=== PATIENT | female | born 1940 | race Caucasian/White ===

== ENCOUNTER 2017-06-01 10:13 | Day surgery (SDC) | payer MEDICARE, MEDICAID ==
[~2017-06-01 10:13] MED LIST: HEPARIN-NS 5,000 UNITS/500 ML 5,000 UNIT/500 ML BAG IV ONE; ceFAZolin IV 1 gm in Dextrose 1 GM/50 ML BAG IVPB ONE
[2017-06-01] MEDS: Bupivacaine-Epi 0.25%-1:200,000 PF Inj ONE ×2 (10:40→11:30)
[2017-06-01] MEDS: Lidocaine 1% Inj (20ml) ONE ×2 (10:41→11:30)
[2017-06-01 10:46] VITALS: O2SAT 100
[2017-06-01] MEDS ORDERED: Lactated Ringer's 1,000 ML IV ONE (11:25)
[2017-06-01] MEDS ORDERED: ceFAZolin IV 1 gm in Dextrose 1 GM/50 ML BAG IVPB ONE (11:36)
[2017-06-01] MEDS ORDERED: Propofol 10 mg/ml Inj (20 ML) ONE (11:38)
[2017-06-01] MEDS ORDERED: Midazolam 2 MG/2 ML VIAL ONE (11:38)
--- NOTE | 2017-06-01 12:55 | PCM.SURG1 ---
Surgeon's Initial Post Op Note - Surgeon's Notes Surgeon: Atif Professional Nursing Tutor: July PGY3 Type of Anesthesia: General LMA, Local Pre-Operative Diagnosis: Colon CA Operative Findings: normal neck anatomy Post-Operative Diagnosis: same Operation Performed: R IJ portacath Specimen/Specimens Removed: none Estimated Blood Loss: EBL {In ML}: 20 Blood Products Given: N/A Drains Used: No Drains Post-Op Condition: Good Date of Surgery/Procedure: 06/01/17 Time of Surgery/Procedure: 12:55
[2017-06-01] MEDS ORDERED: Lactated Ringer's 500 ML IV ONE (13:30)
--- NOTE | 2017-06-01 14:02 | RAD ---
HISTORY: s/p R IJ portacath COMPARISON: No prior. FINDINGS: The right Port-A-Cath terminates in the SVC. LUNGS: No active pulmonary disease. PLEURA: No significant pleural effusion identified, no pneumothorax apparent. CARDIOVASCULAR: Normal. OSSEOUS STRUCTURES: No significant abnormalities. VISUALIZED UPPER ABDOMEN: Normal. OTHER FINDINGS: There is chronic elevation of the right hemidiaphragm PE IMPRESSION: Right Port-A-Cath terminates in the SVC. No pneumothorax. No acute findings.
[2017-06-01 15:15] VITALS: BP 116/54; PULSE 90; RESP 18; TEMP 97
--- NOTE | 2017-06-01 15:30 | RAD ---
PROCEDURE: Intraoperative Fluoroscopy. HISTORY: COLON CA FINDINGS: Fluoroscopic assistance was provided. 8.8 seconds fluoroscopy time utilized during this procedure. Radiation dose = 0.52043 mGy. for additional details.
--- NOTE | 2017-06-02 04:41 | OP ---
PROCEDURE DATE: 06/01/2017 PREOPERATIVE DIAGNOSIS: Colon cancer, status post right hemicolectomy. POSTOPERATIVE DIAGNOSIS: Colon cancer, status post right hemicolectomy. PROCEDURE DONE: 1. Right internal jugular Port-A-Cath insertion. 2. Ultrasound-guided venous access. 3. Intraoperative fluoroscopy. SURGEON: Duarte Srivastava MD [employer] OPERATOR: Eduardo Orozco. TYPE OF ANESTHESIA: General endotracheal tube anesthesia. ESTIMATED BLOOD LOSS: Around 10 mL. DRAINS: None. PATHOLOGY: None. COMPLICATIONS: None. INTRAOPERATIVE FINDINGS: The patient had patent right IJ on ultrasound. INTRAOPERATIVE STEPS: This 76-year-old female who was diagnosed with colon cancer and the patient is status post robotic right hemicolectomy and the patient needed IV chemotherapy. The patient was consented for Port-A-Cath insertion and brought to the OR and placed supine on operating table. After induction of anesthesia, the neck and upper chest was prepped and draped in usual sterile fashion. Under ultrasound guidance, right IJ venous access was done. Intraoperative fluoroscopy confirmation was done of the guidewire and now, the right infraclavicular incision was made and pouch was created. The catheter was then tunneled from the pouch up to the right IJ insertion site and the catheter was placed into the dilator sheath and the intraoperative fluoroscopy confirmation was done for proper placement and the catheter was connected to the port and port was accessed and port was sutured to the floor of the pouch and the wound was closed in two layer subcutaneous with 2-0 Vicryl and skin with 4-0 Monocryl and dry sterile dressing was applied. The patient tolerated the procedure well. Count of the instrument and gauze was correct. There was no apparent complication. The patient was extubated in OR and sent to the postanesthesia care unit in stable condition. Duarte Srivastava MD
== END 2017-06-01 15:18 | disposition home or self-care (01) ==
LOC: C.SDS 10:13
PROVIDERS: ATTEND Surgery Surgical Critical Care
DX: C18.9 Malignant neoplasm of colon, unspecified (principal)
CPT/HCPCS: 36561; 71010; 76000; C1788; J1644; J2001; J2250; J2704; J2765; J3010; J7040; J7120

== ENCOUNTER 2017-11-23 09:29 | Day surgery (SDC) | payer MEDICARE, MEDICAID ==
[2017-11-19 10:07] VITALS: BMI 17.7
[2017-11-23] MEDS ORDERED: Bupivacaine 0.25% Inj(30mL) ONE (12:12)
[2017-11-23] MEDS ORDERED: ceFAZolin 1 gm in NS 1 GM/100 ML BAG IVPB ONE (12:12)
[2017-11-23] MEDS ORDERED: Lidocaine/Epinephrine 1% 1:100000 10 ML IJ ONE (12:12)
[2017-11-23] MEDS ORDERED: Oxycodone/Acetaminophen 5/325 mg Tab PO PRN (13:37)
--- NOTE | 2017-11-23 13:37 | PCM.SURG1 ---
Surgeon's Initial Post Op Note - Surgeon's Notes Surgeon: Dr. Srivastava Editor [employer]: Alexandria Dorman, PGY-1 Type of Anesthesia: Local Pre-Operative Diagnosis: s/p colon cancer requiring chemotherapy Operative Findings: see op report Post-Operative Diagnosis: s/p colon cancer requiring chemotherapy Operation Performed: RIJ portacath removal Specimen/Specimens Removed: portacath Estimated Blood Loss: EBL {In ML}: 2 Blood Products Given: N/A Drains Used: No Drains Post-Op Condition: Good Date of Surgery/Procedure: 11/23/17 Time of Surgery/Procedure: 13:37
[2017-11-23 14:07] VITALS: RESP 16; O2SAT 100
[2017-11-23 15:31] VITALS: BP 131/52; PULSE 79; TEMP 97.7
--- NOTE | 2017-11-24 04:00 | OP ---
PROCEDURE DATE: 11/23/2017 PREOPERATIVE DIAGNOSIS: Colon cancer, status post colon resection and status post chemotherapy. POSTOPERATIVE DIAGNOSIS: Colon cancer, status post colon resection and status post chemotherapy. PROCEDURE: Removal of the Port-A-Cath. SURGEON: Duarte Srivastava MD IN CLASSROOM TUTOR: Alexandria Dorman. TYPE OF ANESTHESIA: Local anesthesia plus sedation. ESTIMATED BLOOD LOSS: Around 10 mL. DRAINS: None. PATHOLOGY: The Port-A-Cath catheter was sent for the pathology. COMPLICATIONS: None. INTRAOPERATIVE FINDINGS: The patient had right IJ Port-A-Cath. The right chest and neck was prepped and draped. Local anesthesia was injected. Incision was made. Port was removed. The capsule was partially dissected and removed, and the wound was irrigated, and wound was closed with multiple layer. The of the capsule area was sutured with a 2-0 Vicryl, the second layer is a deep subcu, and another layer of skin with 4-0 Monocryl, and a dry sterile dressing was applied. The patient tolerated the procedure well. Count of instrument and gauze was correct. There was no apparent complication. The second part of the operation is a layered closure of the wound simple 3 x 1 cm size. The patient tolerated the procedure well. Count of instrument and gauze was correct. Duarte Srivastava MD
== END 2017-11-23 14:40 | disposition home or self-care (01) ==
LOC: C.SDS 09:29
PROVIDERS: ATTEND Surgery Surgical Critical Care
DX: C18.9 Malignant neoplasm of colon, unspecified (principal); Z45.2 Encounter for adjustment and management of vascular access device
CPT/HCPCS: 36590; 88300; J0690; J3010

== ENCOUNTER 2018-01-15 10:31 | Emergency (ER) | payer MEDICARE, MEDICAID ==
[2018-01-15 10:39] VITALS: BMI 18.3
[2018-01-15 10:41] VITALS: O2SAT 100
--- NOTE | 2018-01-15 11:21 | C.PDOC ---
History Of Present Illness 77 y/o F c PMHx colon cancer s/p resection and chemotherapy (last treatment 2 months ago) p/w numbness/paresthesias of bilateral hands and feet x 1 month, gradually worsening. Saw Dr. Reynolds for these symptoms and started on Gabapentin , which she states is not helping. Son states patient has been having difficulty walking secondary to the numbness. Patient denies fever, chills, chest pain, dyspnea, motor weakness, pain. Time Seen by Provider: 01/15/18 10:58 Chief Complaint (Nursing): Weakness/Neurological Deficit Past Medical History Vital Signs: Last Vital Signs Temp 98.5 F 01/15/18 10:39 Pulse 81 01/15/18 10:39 Resp 18 01/15/18 10:39 BP 123/78 01/15/18 10:39 Pulse Ox 100 01/15/18 11:43 - Medical History PMH: Depression (FROM DIAGNOSIS), Gall Bladder Disease, Malignancy Surgical History: Cholecystectomy - [facility] Procedures DRAINAGE OF ASCENDING COLON, ENDO, DIAGN (04/27/17) EXCISION OF GREATER OMENTUM, PERC ENDO APPROACH (04/27/17) EXCISION OF RECTUM, ENDO, DIAGN (04/27/17) EXCISION OF SIGMOID COLON, ENDO, DIAGN (04/27/17) INFLUENZA VACCINATION (07/30/13) LAPAROSCOPIC CHOLECYSTECTOMY (07/30/13) RESECTION OF RIGHT LARGE INTESTINE, PERC ENDO APPROACH (04/27/17) VACCINATION NEC (07/30/13) Family History: States: Unknown Family Hx - Social History Hx Alcohol Use: No Hx Substance Use: No - Immunization History Hx Tetanus Toxoid Vaccination: No Hx Influenza Vaccination: No Hx Pneumococcal Vaccination: No Review Of Systems Except As Marked, All Systems Reviewed And Found Negative. Constitutional: Negative for: Fever Cardiovascular: Negative for: Chest Pain Physical Exam - Physical Exam Additional Physical Exam Comments: Gen: NAD Head: NC Eyes: No icterus ENT: MMM Neck: Supple Chest: No tenderness CV: Regular rate Lungs: CTA b/l Abd: Soft, NT Back: No CVA tenderness Skin: No rash Extremities: FROM x4, no edema Neuro: Alert, moves all extremities, no sensation to light touch in hands and feet, pin prick sensation intact but decreased ED Course And Treatment - Laboratory Results Result Diagrams: 01/15/18 11:31 06/01/18 11:31 O2 Sat by Pulse Oximetry: 100 Medical Decision Making Medical Decision Making: CXR IMPRESSION: No active pulmonary disease. EKG NSR 70 bpm, no ST/T wave changes. Labs unremarkable. Discussed case with Dr. Reynolds who states patient has had neuropathy which is a known side effect of the chemotherapy and has seen him multiple times for it. Recommends starting Lyrica and he will see patient in his office after the weekend. Disposition - Disposition Referrals: Nabor Reynolds MD [Staff Provider] - Disposition: HOME/ ROUTINE Disposition Time: 12:27 Condition: STABLE Prescriptions: Pregabalin [Lyrica] 50 mg PO TID #30 cap Instructions: Peripheral Neuropathy Forms: [facility] (Solomon Islander) - Clinical Impression Clinical Impression: Neuropathy
--- NOTE | 2018-01-15 11:37 | RAD ---
HISTORY: paresthesias COMPARISON: 06/17/2017. FINDINGS: LUNGS: The lungs are well inflated and clear. PLEURA: No significant pleural effusion identified, no pneumothorax apparent. CARDIOVASCULAR: Normal. OSSEOUS STRUCTURES: No significant abnormalities. VISUALIZED UPPER ABDOMEN: Normal. OTHER FINDINGS: None. IMPRESSION: No active pulmonary disease.
[2018-01-15 11:41] LABS: BASO # 0.1 K/uL (0.0-0.2); BASO % 1.3 % (0.0-2.0); EOS # 0.1 K/uL (0.0-0.7); EOS % 3.7 % (0.0-4.0); HEMOGLOBIN 13.2 g/dL (11.0-16.0); LYMPH # 1.3 K/uL (1.0-4.3); LYMPH % 33.6 % (20.0-40.0); MEAN CELL VOLUME 93.8 fL (81.0-99.0); MEAN CORPUSCULAR HEMOGLOBIN 32.7 pg (27.0-31.0); MEAN CORPUSCULAR HGB CONC 34.9 g/dL (33.0-37.0); MEAN PLATELET VOLUME 7.4 fL (7.2-11.7); MONO # 0.5 K/uL (0.0-0.8); MONO % 11.4 % (0.0-10.0); NRBC % 0.1 % (0.0-2.0); RBC 4.04 Mil/uL (3.80-5.20); RED CELL DISTRIBUTION WIDTH 14.3 % (11.5-14.5)
[2018-01-15 11:51] LABS: ALBUMIN 3.8 g/dL (3.5-5.0); ALT/SGPT 43 U/L (9-52); AST/SGOT 64 U/L (14-36); BLOOD UREA NITROGEN 11 mg/dL (7-17); CALCIUM 8.8 mg/dl (8.6-10.4); GFR AFRICAN-AMERICAN > 60; GFR NON-AFRICAN AMERICAN > 60
[2018-01-15 11:56] LABS: SQUAMOUS EPITHIAL 2 /hpf (0-5); URINE BILIRUBIN NEGATIVE (NEGATIVE); URINE BLOOD NEGATIVE (NEGATIVE); URINE CLARITY Clear (Clear); URINE COLOR Yellow (YELLOW); URINE GLUCOSE (UA) NORMAL (Normal); URINE LEUKOCYTE ESTERASE 2+ Leu/uL (Negative); URINE PROTEIN NEGATIVE (NEGATIVE); URINE UROBILINOGEN NORMAL mg/dL (0.2-1.0)
[2018-01-15 13:06] VITALS: BP 150/79; PULSE 80; RESP 16; TEMP 98.4
== END 2018-01-15 13:04 | disposition home or self-care (01) ==
LOC: C.ER 10:31
DX: G62.9 Polyneuropathy, unspecified (principal)

== ENCOUNTER 2018-05-26 13:05 | Inpatient (IN) | payer MEDICARE, MEDICAID ==
[2018-05-26 13:05] VITALS: BMI 18.3
--- NOTE | 2018-05-26 14:27 | C.PDOC ---
History Of Present Illness 77yo F PMH colon CA s/p chemo (last 6 months ago) c/o increased numbness/tingling in hands and feet x1.5 months. After completing chemotherapy, she experienced numbness tingling well controlled on Lyrica 300. Was decreased to 100 by her primary, Dr. Shakira Castillo 2 months ago. Today, feeling increased weakness and c/o requiring assistance to move around the house, becoming deconditioned. Denies [place], dizziness, lightheadedness, syncope, nausea, vomiting, incontinence. Reports 5 lb weight loss in the last 6 months without trying. <Radha Miller - Last Filed: 05/26/18 16:54> <Radha Miller - Last Filed: 05/26/18 16:54> <Eduardo Herndon DO - Last Filed: 05/26/18 18:58> Chief Complaint (Nursing): Weakness/Neurological Deficit Past Medical History Vital Signs: Last Vital Signs Temp 98.3 F 05/26/18 13:18 Pulse 118 H 05/26/18 13:18 Resp 16 05/26/18 13:18 BP 122/79 05/26/18 13:18 Pulse Ox 96 05/26/18 13:18 - Medical History PMH: Depression (FROM DIAGNOSIS), Malignancy Denies: Gall Bladder Disease Surgical History: Cholecystectomy - [facility] Procedures DRAINAGE OF ASCENDING COLON, ENDO, DIAGN (04/27/17) EXCISION OF GREATER OMENTUM, PERC ENDO APPROACH (04/27/17) EXCISION OF RECTUM, ENDO, DIAGN (04/27/17) EXCISION OF SIGMOID COLON, ENDO, DIAGN (04/27/17) INFLUENZA VACCINATION (07/30/13) LAPAROSCOPIC CHOLECYSTECTOMY (07/30/13) RESECTION OF RIGHT LARGE INTESTINE, PERC ENDO APPROACH (04/27/17) VACCINATION NEC (07/30/13) Family History: States: Unknown Family Hx Other Family History: MGF- thyroid CA - Social History Hx Tobacco Use: No Hx Alcohol Use: No Hx Substance Use: No - Immunization History Hx Tetanus Toxoid Vaccination: Yes Hx Influenza Vaccination: Yes Hx Pneumococcal Vaccination: No <Radha Miller - Last Filed: 05/26/18 16:54> Vital Signs: Last Vital Signs Temp 97.4 F L 05/26/18 17:11 Pulse 89 05/26/18 17:11 Resp 18 05/26/18 17:11 BP 136/73 05/26/18 17:11 Pulse Ox 97 05/26/18 17:11 - [facility] Procedures DRAINAGE OF ASCENDING COLON, ENDO, DIAGN (04/27/17) EXCISION OF GREATER OMENTUM, PERC ENDO APPROACH (04/27/17) EXCISION OF RECTUM, ENDO, DIAGN (04/27/17) EXCISION OF SIGMOID COLON, ENDO, DIAGN (04/27/17) INFLUENZA VACCINATION (07/30/13) LAPAROSCOPIC CHOLECYSTECTOMY (07/30/13) RESECTION OF RIGHT LARGE INTESTINE, PERC ENDO APPROACH (04/27/17) VACCINATION NEC (07/30/13) <Eduardo Herndon DO - Last Filed: 05/26/18 18:58> Review Of Systems Except As Marked, All Systems Reviewed And Found Negative. Constitutional: Positive for: Weakness, Malaise, Weight loss. Negative for: Fever, Chills Eyes: Positive for: Other (jaundice). Negative for: Vision Change ENT: Negative for: Ear Pain, Ear Discharge Cardiovascular: Negative for: Chest Pain, Palpitations, Light Headedness Respiratory: Negative for: Cough, Shortness of Breath, Hemoptysis, Sputum, Wheezing Gastrointestinal: Negative for: Nausea, Abdominal Pain, Diarrhea, Constipation, Melena, Hematochezia, Hematemesis Genitourinary: Negative for: Dysuria, Frequency, Incontinence, Hematuria Musculoskeletal: Negative for: Shoulder Pain, Arm Pain, Back Pain Skin: Positive for: Jaundice Neurological: Positive for: Weakness, Numbness, Incoordination. Negative for: Change in Speech, Confusion, Headache, Dizziness <Radha Miller - Last Filed: 05/26/18 16:54> Physical Exam - Physical Exam Appears: Non-toxic, No Acute Distress Skin: Dry, Jaundice Head: Atraumatic, Normacephalic Eye(s): bilateral: PERRL, EOMI, Scleral Icterus, Other (arcus senilis) Ear(s): Bilateral: Normal Oral Mucosa: Dry Cardiovascular: Rhythm Regular, Rhythm Irregular, No Murmur Respiratory: Normal Breath Sounds, No Accessory Muscle Use Gastrointestinal/Abdominal: Bowel Sounds, Soft, No Tenderness, No Organomegaly, Distention (pt states distention is her normal) Back: No CVA Tenderness Extremity: Normal ROM Pulses: Left Radial: Normal, Right Radial: Normal, Left Dorsalis Pedis: Normal, Right Dorsalis Pedis: Normal DTR: Bicep (R): 2+, Bicep (L): 2+, Tricep (R): 2+, Tricep (L): 2+, Knee (R): 2+, Knee (L): 2+ Neurological/Psych: Oriented x3, Normal Speech, Normal Cognition, Normal Cranial Nerves, No Normal Motor (decreased MS in L hand and L foot. couldn't opposition) Gait: With Assistance <Radha Miller - Last Filed: 05/26/18 16:54> ED Course And Treatment - Laboratory Results Result Diagrams: 05/26/18 15:33 05/26/18 15:33 O2 Sat by Pulse Oximetry: 96 <Radha Miller - Last Filed: 05/26/18 16:54> - Laboratory Results Result Diagrams: 05/26/18 15:33 05/26/18 15:33 <Eduardo Herndon DO - Last Filed: 05/26/18 18:58> Medical Decision Making Medical Decision Making: CBC, CMP, lipase -> elevated LFTs, alk phos, tBili CT A/P with IV contrast IVF, direct bili, coags. UA EKG NSR, normal axis She does not have any f/u appointments scheduled with Drs. Jones or Dr. Castillo or GI at this time. Patient refused SNF or home PT after Tx. Is requesting wheelchair on d/c but was advised to go to her PMD for referral. <Radha Miller - Last Filed: 05/26/18 16:54> Disposition - Disposition Disposition Time: 17:00 <Radha Miller - Last Filed: 05/26/18 16:54> <Eduardo Herndon DO - Last Filed: 05/26/18 18:58> - Disposition Condition: FAIR Instructions: Weakness (ED) Forms: [facility] (Nepali) - Clinical Impression Clinical Impression: Elevated LFTs, Jaundice, Weakness - PA / [employer] EXAMINER / Resident Statement / has reviewed & agrees with the documentation as recorded. / has examined the patient and agrees with the treatment plan. <Radha Miller - Last Filed: 05/26/18 16:54>
[2018-05-26] MEDS ORDERED: Sodium Chloride 0.9% 1,000 ML IV ONE (14:36)
[2018-05-26 15:48] LABS: HEMOGLOBIN 14.2 g/dL (11.0-16.0); MEAN CELL VOLUME 92.2 fL (81.0-99.0); MEAN CORPUSCULAR HEMOGLOBIN 31.2 pg (27.0-31.0); MEAN CORPUSCULAR HGB CONC 33.9 g/dL (33.0-37.0); MEAN PLATELET VOLUME 7.4 fL (7.2-11.7); RBC 4.55 Mil/uL (3.80-5.20); RED CELL DISTRIBUTION WIDTH 21.5 % (11.5-14.5)
[2018-05-26 15:53] LABS: PLATELET COUNT 364 K/uL (130-400); WHITE BLOOD COUNT 7.4 K/uL (4.8-10.8)
[2018-05-26 15:55] LABS: BLOOD UREA NITROGEN 9 mg/dL (7-17); CALCIUM 9.3 mg/dl (8.6-10.4); GFR NON-AFRICAN AMERICAN > 60; LIPASE 108 U/L (23-300)
[2018-05-26 15:57] LABS: ALB/GLOB RATIO 0.8 (1.0-2.1); ALBUMIN 3.1 g/dL (3.5-5.0); ALT/SGPT 104 U/L (9-52); AST/SGOT 355 U/L (14-36)
[2018-05-26 16:30] LABS: NEUT # 6.7 K/uL (1.8-7.0)
[2018-05-26 16:31] LABS: EOS # 0.1 K/uL (0.0-0.7); LYMPH # 0.4 K/uL (1.0-4.3); MONO # 0.3 K/uL (0.0-0.8)
[2018-05-26 16:32] LABS: ANISOCYTOSIS SLIGHT; EOSINOPHIL 1 % (0-4); LYMPHOCYTE 6 % (20-40); MONOCYTE 4 % (0-10); NEUTROPHIL 89 % (50-75); PLATELET ESTIMATE NORMAL (NORMAL); TOTAL CELLS COUNTED 100
[2018-05-26 16:33] LABS: POLYCHROMIC SLIGHT; TARGET CELLS SLIGHT
[2018-05-26 16:44] LABS: INR 1.4; PROTHROMBIN TIME 15.4 SECONDS (9.7-12.2)
[2018-05-26] MEDS ORDERED: Iohexol 300 100 ML IJ ONE (16:59)
[2018-05-26 17:51] LABS: SQUAMOUS EPITHIAL 2 /hpf (0-5); URINE BACTERIA OCC (<OCC); URINE BILIRUBIN 2+ (NEGATIVE); URINE BLOOD NEGATIVE (NEGATIVE); URINE CLARITY Hazy (Clear); URINE COLOR Amber (YELLOW); URINE GLUCOSE (UA) NORMAL (Normal); URINE LEUKOCYTE ESTERASE NEG Leu/uL (Negative); URINE PROTEIN 1+ mg/dL (NEGATIVE)
--- NOTE | 2018-05-27 09:44 | US ---
Date of service: 05/26/2018 HISTORY: weakness, jaundice COMPARISON: None. TECHNIQUE: Sonographic evaluation of the abdomen. FINDINGS: LIVER: Measures 15 cm at least probably more per images. Grossly abnormal echogenicity of the liver parenchyma. Multiple large masses some with central hypodensities probable necrotic centers are present. One complex left hepatic mass measures 11.6 x 11.5 x 11.5 cm. Another right hepatic mass measures 14 x 13 by 13 cm. There are likely additional masses throughout the left and right hepatic lobes. No intrahepatic bile duct dilatation. GALLBLADDER: Nonvisualized consistent with prior cholecystectomy per patient. COMMON BILE DUCT: Measures 7 mm. No stones. No dilatation. PANCREAS: Limited exam. RIGHT KIDNEY: Measures 8.4 x 4.5 x 4.7cm. Normal echogenicity. No calculus, mass, or hydronephrosis. LEFT KIDNEY: Measures 9.0 x 4.7 x 4.7cm. Normal echogenicity. No calculus, solid appearing mass, or hydronephrosis. In the lower pole benign cyst measuring 1.1 x 1.0 x 1.0 cm in size is noted. SPLEEN: 8.8 cm normal size without mass apparent AORTA: No aneurysmal dilatation. IVC: Unremarkable. OTHER FINDINGS: There is ascites present IMPRESSION: Hepatomegaly with grossly abnormal echotexture and multiple masses studding it. Multiple hepatic metastases suspect. Bordering ascites. No dilated ducts. Cholecystectomy Evaluation of pancreas markedly limited. Incidental small left lower renal pole cyst. Concordant results (preliminary interpretation) provided by [employer].
--- NOTE | 2018-05-27 13:07 | CT ---
Date of service: 05/26/18 CT abdomen and pelvis with IV contrast Indication: Abdominal distension, patient is jaundiced, weight loss Technique: Contiguous axial images of the abdomen and pelvis. Coronal and Sagittal reformats generated and reviewed. Contrast: 100 mL Omnipaque [address] exam was performed using 1 or more of the following dose reduction techniques: Automated exposure control, adjustment of the MAA and/or kV according to patient size, and/or use of iterative reconstruction technique. Radiation dose: Total exam DLP = 336.41 MGy-cm. Comparison: Abdominal ultrasound performed 05/26/18 Findings: Multiple bilateral pulmonary nodules measuring up to 5 mm consistent with metastases. Atelectasis minimal basilar atelectasis/scarring. There is no visible pleural effusion or pneumothorax. Hepatomegaly. Markedly heterogeneous abnormal appearance of the liver with innumerable masses appear consistent with metastases. Cholecystectomy. Pancreatic atrophy.No evidence of adrenal mass. The kidneys enhance symmetrically. No hydronephrosis or obstructing calculus identified. Small cortical hypodensities involving the left kidney, likely cyst. The spleen appears unremarkable. Diffuse gastric wall thickening; correlate for possibility gastritis. Duodenal wall thickening may be seen in the setting of duodenitis. Extensive diverticulosis without CT evidence of acute diverticulitis. No evidence of bowel obstruction. There is no definite free air. Large complex mass with both solid and cystic elements measures approximately 13 x 11 cm. Mass origin unclear, however suspected ovarian. The uterus is not identified presumably due to hysterectomy. Small abdominal and pelvic ascites. The urinary bladder appears decompressed. No acute osseous abnormality is detected. Impression: Large complex pelvic mass with cystic and solid components of unclear origin, possibly ovarian in etiology. The uterus is absent presumably due to hysterectomy. Innumerable hepatic masses consistent with metastases. Pulmonary nodules also consistent with metastases. Correlate clinically. Small abdominal and pelvic ascites. Diffuse gastric wall thickening; correlate for possibility of gastritis. Duodenal wall thickening may be seen in the setting of duodenitis. Correlate clinically. Additional findings as above. Preliminary impression was provided by [employer].
--- NOTE | 2018-05-27 13:58 | CP.PCM.CON ---
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 For the last 5 days patient has been unable to tolerate most meals, regurgitating undigested food in the hours following eating. Her sister who is at bedside states that the patient suddenly became jaundice 5 days prior to admission as well. Since finishing chemotherapy, patient has felt well and had n o issues until recently. She was using Lyrica for numbness/tingling in her hands/feet without relief. Given the constellation of symptoms, she came to the ED for further evaluation. A CT performed in the ED showed multiple malignant- appearing liver lesions along with a large right pelvic mass. 12 system ROS performed and negative except where stated PMHx: See HPI PSHx: Right hemicolectomy, cholecystectomy, Port-a-cath placement FHx: Mother - stomach cancer, Sister - breast cancer; grandmother - thyroid cancer Social: Denies tobacco, EtOH or illicit drug use Endo: Colonoscopy - 04/2017 - ascending mass which could not be traversed leading to cancer diagnosis Past Patient History - Infectious Disease Hx of Infectious Diseases: None - Past Medical History & Family History Past Medical History?: Yes - Past Social History Smoking Status: Never Smoked - NEUROLOGICAL Other/Comment: tingling and numbness of hands and feet - RENAL Hx Chronic Kidney Disease: No - HEMATOLOGICAL/ONCOLOGICAL Hx Blood Disorders: Yes Hx Blood Transfusions: Yes Hx Blood Transfusion Reaction: No Hx Cancer: Yes (COLON) Other/Comment: FINISHED TREATMENT november 2017 - MUSCULOSKELETAL/RHEUMATOLOGICAL Hx Falls: Yes (at home in the bathroom) Hx Unsteady Gait: Yes Other/Comment: weak to walk - GASTROINTESTINAL Hx Gall Bladder Disease: No Other/Comment: gallbladder and colon surgery - PSYCHIATRIC Hx Depression: Yes (FROM DIAGNOSIS) Hx Substance Use: No - SURGICAL HISTORY Hx Cholecystectomy: Yes Other/Comment: colon surgery - ANESTHESIA Hx Anesthesia: Yes Hx Anesthesia Reactions: No Hx Malignant Hyperthermia: No Meds Allergies/Adverse Reactions: Allergies Allergy/AdvReac Type Severity Reaction Status Date / Time diphenhydramine Allergy Intermediate ITCHING Verified 01/15/18 10:38 [From Benjerri] - Medications Medications: Current Medications Influenza Virus Vaccine (Fluzone Quad [id number]) 60 mcg IM .ONCE ONE Stop: 05/29/18 10:01 Pneumococcal Polyvalent Vaccine (Pneumovax 23 Vaccine) 0.5 ml IM .ONCE ONE Stop: 05/29/18 10:01 Physical Exam - Constitutional Appears: No Acute Distress, Chronically Ill - Eye Exam Eye Exam: EOMI, PERRL, Scleral icterus - ENT Exam ENT Exam: Mucous Membranes Moist - Respiratory Exam Respiratory Exam: Clear to Auscultation Bilateral. absent: Rales, Rhonchi, Wheezes - Cardiovascular Exam Cardiovascular Exam: RRR, +S1, +S2 - GI/Abdominal Exam GI & Abdominal Exam: Firm (RLQ), Mass (RLQ), Normal Bowel Sounds, Soft, Tenderness (RLQ). absent: Distended, Guarding, Hernia, Organomegaly, Pulsatile Mass, Rigid - Extremities Exam Additional comments: 1+ B/L LE edema - Neurological Exam Neurological exam: Alert, Oriented x3 - Psychiatric Exam Psychiatric exam: Normal Affect - Skin Skin Exam: Dry, Warm Results - Vital Signs Recent Vital Signs: Last Vital Signs Temp 97.6 F 05/27/18 07:44 Pulse 93 H 05/27/18 07:44 Resp 20 05/27/18 07:44 BP 135/75 05/27/18 07:44 Pulse Ox 95 05/27/18 07:44 - Labs Result Diagrams: 05/26/18 15:33 05/26/18 15:33 Labs: Laboratory Results - last 24 hr 05/26/18 05/26/18 05/26/18 15:33 15:33 15:33 WBC 7.4 D RBC 4.55 Hgb 14.2 Hct 41.9 MCV 92.2 MCH 31.2 H MCHC 33.9 RDW 21.5 H Plt Count 364 D MPV 7.4 Neut % (Auto) 90.0 H Lymph % (Auto) 5.0 L [place] % (Auto) 4.0 Eos % (Auto) 1.0 Baso % (Auto) 0.0 Neut # (Auto) 6.7 Lymph # (Auto) 0.4 L [place] # (Auto) 0.3 Eos # (Auto) 0.1 Baso # (Auto) 0.0 Neutrophils % (Manual) 89 H Lymphocytes % (Manual) 6 L Monocytes % (Manual) 4 Eosinophils % (Manual) 1 Platelet Estimate Normal Polychromasia Slight Anisocytosis (manual) Slight Target Cells Slight PT INR APTT Sodium 134 Potassium 4.2 Chloride 100 Carbon Dioxide 20 L Anion Gap 18 BUN 9 Creatinine 0.5 L Est GFR ( Amer) > 60 Est GFR (Non-Af Amer) > 60 Random Glucose 119 H Calcium 9.3 Total Bilirubin 20.1 H Direct Bilirubin 17.9 H AST 355 H D ALT 104 H D Alkaline Phosphatase 1143 H Troponin I < 0.0120 Total Protein 7.3 Albumin 3.1 L Globulin 4.1 H Albumin/Globulin Ratio 0.8 L Lipase 108 Urine Color Urine Clarity Urine pH Ur Specific [place] Urine Protein Urine Glucose (UA) Urine Ketones Urine Blood Urine Nitrate Urine Bilirubin Urine Urobilinogen Ur Leukocyte Esterase Urine WBC (Auto) Urine RBC (Auto) Ur Squamous Epith Cells Urine Bacteria 05/26/18 05/26/18 16:32 17:32 WBC RBC Hgb Hct MCV MCH MCHC RDW Plt Count MPV Neut % (Auto) Lymph % (Auto) [place] % (Auto) Eos % (Auto) Baso % (Auto) Neut # (Auto) Lymph # (Auto) [place] # (Auto) Eos # (Auto) Baso # (Auto) Neutrophils % (Manual) Lymphocytes % (Manual) Monocytes % (Manual) Eosinophils % (Manual) Platelet Estimate Polychromasia Anisocytosis (manual) Target Cells PT 15.4 H INR 1.4 APTT 30 Sodium Potassium Chloride Carbon Dioxide Anion Gap BUN Creatinine Est GFR ( Amer) Est GFR (Non-Af Amer) Random Glucose Calcium Total Bilirubin Direct Bilirubin AST ALT Alkaline Phosphatase Troponin I Total Protein Albumin Globulin Albumin/Globulin Ratio Lipase Urine Color Aliya Urine Clarity Hazy Urine pH 6.0 Ur Specific [place] 1.017 Urine Protein 1+ H Urine Glucose (UA) Normal Urine Ketones Negative Urine Blood Negative Urine Nitrate Negative Urine Bilirubin 2+ H Urine Urobilinogen 4.0 H Ur Leukocyte Esterase Neg Urine WBC (Auto) 7 H Urine RBC (Auto) < 1 Ur Squamous Epith Cells 2 Urine Bacteria Occ H Assessment & Plan - Assessment and Plan (Free Text) Assessment: Patient is a 77yo female with PMHx significant for 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 -Multiple liver masses -RLQ pelvic mass -Nausea/vomiting -H/O stage 3 colon cancer with lymph node metastases s/p right hemicolectomy and chemotherapy -Direct hyperbilirubinemia 2/2 above -Abnormal LFTs 2/2 above Plan: -CT A/P and U/S abdomen reviewed with numerous large liver masses and RLQ pelvic mass noted -Masses are suspicious for progression of disease given history of colon cancer with LN mets -Hyperbilirubinemia suspected as a result of biliary obstruction/liver degeneration in the setting of advanced malignancy -Encourage oncology evaluation/consultation -Change to liquid diet -Given pronounced advancement of disease, consider palliative/hospice care -Supportive care with antiemetics, IVF as indicated -Will monitor clinical course - Date & Time Date: 05/27/18 Time: 14:00 <Regan Negrete - Last Filed: 05/27/18 14:24> Meds - Medications Medications: Current Medications Influenza Virus Vaccine (Fluzone Quad [id number]) 60 mcg IM .ONCE ONE Stop: 05/29/18 10:01 Pneumococcal Polyvalent Vaccine (Pneumovax 23 Vaccine) 0.5 ml IM .ONCE ONE Stop: 05/29/18 10:01 Results - Vital Signs Recent Vital Signs: Last Vital Signs Temp 97.6 F 05/27/18 07:44 Pulse 93 H 05/27/18 07:44 Resp 20 05/27/18 07:44 BP 135/75 05/27/18 07:44 Pulse Ox 95 05/27/18 07:44 - Labs Result Diagrams: 05/26/18 15:33 05/26/18 15:33 Labs: Laboratory Results - last 24 hr 05/26/18 05/26/18 05/26/18 15:33 15:33 15:33 WBC 7.4 D RBC 4.55 Hgb 14.2 Hct 41.9 MCV 92.2 MCH 31.2 H MCHC 33.9 RDW 21.5 H Plt Count 364 D MPV 7.4 Neut % (Auto) 90.0 H Lymph % (Auto) 5.0 L [place] % (Auto) 4.0 Eos % (Auto) 1.0 Baso % (Auto) 0.0 Neut # (Auto) 6.7 Lymph # (Auto) 0.4 L [place] # (Auto) 0.3 Eos # (Auto) 0.1 Baso # (Auto) 0.0 Neutrophils % (Manual) 89 H Lymphocytes % (Manual) 6 L Monocytes % (Manual) 4 Eosinophils % (Manual) 1 Platelet Estimate Normal Polychromasia Slight Anisocytosis (manual) Slight Target Cells Slight PT INR APTT Sodium 134 Potassium 4.2 Chloride 100 Carbon Dioxide 20 L Anion Gap 18 BUN 9 Creatinine 0.5 L Est GFR ( Amer) > 60 Est GFR (Non-Af Amer) > 60 Random Glucose 119 H Calcium 9.3 Total Bilirubin 20.1 H Direct Bilirubin 17.9 H AST 355 H D ALT 104 H D Alkaline Phosphatase 1143 H Troponin I < 0.0120 Total Protein 7.3 Albumin 3.1 L Globulin 4.1 H Albumin/Globulin Ratio 0.8 L Lipase 108 Urine Color Urine Clarity Urine pH Ur Specific [place] Urine Protein Urine Glucose (UA) Urine Ketones Urine Blood Urine Nitrate Urine Bilirubin Urine Urobilinogen Ur Leukocyte Esterase Urine WBC (Auto) Urine RBC (Auto) Ur Squamous Epith Cells Urine Bacteria 05/26/18 05/26/18 16:32 17:32 WBC RBC Hgb Hct MCV MCH MCHC RDW Plt Count MPV Neut % (Auto) Lymph % (Auto) [place] % (Auto) Eos % (Auto) Baso % (Auto) Neut # (Auto) Lymph # (Auto) [place] # (Auto) Eos # (Auto) Baso # (Auto) Neutrophils % (Manual) Lymphocytes % (Manual) Monocytes % (Manual) Eosinophils % (Manual) Platelet Estimate Polychromasia Anisocytosis (manual) Target Cells PT 15.4 H INR 1.4 APTT 30 Sodium Potassium Chloride Carbon Dioxide Anion Gap BUN Creatinine Est GFR ( Amer) Est GFR (Non-Af Amer) Random Glucose Calcium Total Bilirubin Direct Bilirubin AST ALT Alkaline Phosphatase Troponin I Total Protein Albumin Globulin Albumin/Globulin Ratio Lipase Urine Color Aliya Urine Clarity Hazy Urine pH 6.0 Ur Specific [place] 1.017 Urine Protein 1+ H Urine Glucose (UA) Normal Urine Ketones Negative Urine Blood Negative Urine Nitrate Negative Urine Bilirubin 2+ H Urine Urobilinogen 4.0 H Ur Leukocyte Esterase Neg Urine WBC (Auto) 7 H Urine RBC (Auto) < 1 Ur Squamous Epith Cells 2 Urine Bacteria Occ H Attending/Attestation - Attestation I have personally seen and examined this patient.: Yes I have fully participated in the care of the patient.: Yes I have reviewed all pertinent clinical information: Yes Notes (Text): 05/27/18 14:18 I have seen and examined patient with GI fellow. Agree with above documentation with the following additions. In brief, this is a 77 year old female with history of invasive colon cancer s/p R hemicolectomy in April 2017 followed by 6 months of chemotherapy from May - October 2017, who presents to hospital with complaint of progressive upper and lower extremity numbness/tingling along with jaundice and loss of appetite for the past 5 days. Initially following chemotherapy patient was feeling well without any significant lifestyle changes. According to patient's family at bedside, she seems to have deteriorated over the past one week. She also reports vomiting following consumption of solid food for the past 2 days. She endorses RLQ abdominal pain, 5/10 intensity, non- radiating. History of colon cancer s/p R hemicolectomy, chemotherapy Jaundice Transaminitis Abdominal pain Vomiting CT imaging reviewed by me showing multiple hepatic lesions consistent with metastatic disease, pulmonary nodules, no biliary dilation (normal caliber CBD), large complex cystic pelvic lesion - Clear liquid diet as tolerated - Oncology evaluation - Continue with supportive care, IVF hydration therapy - Given advanced patient disease with overall poor prognosis, would suggest palliative care evaluation - No planned GI intervention at this time, will continue to monitor patient clinical course
[2018-05-27] MEDS: Enoxaparin 40 mg Syringe SC SCH (16:18)
[2018-05-27] MEDS: Pantoprazole 40 mg EC Tab PO SCH (16:18)
--- NOTE | 2018-05-27 21:44 | CP.PCM.HP ---
Past Patient History - Infectious Disease Hx of Infectious Diseases: None - Past Medical History & Family History Past Medical History?: Yes - Past Social History Smoking Status: Never Smoked - NEUROLOGICAL Other/Comment: tingling and numbness of hands and feet - RENAL Hx Chronic Kidney Disease: No - HEMATOLOGICAL/ONCOLOGICAL Hx Blood Disorders: Yes Hx Blood Transfusions: Yes Hx Blood Transfusion Reaction: No Hx Cancer: Yes (COLON) Other/Comment: FINISHED TREATMENT november 2017 - MUSCULOSKELETAL/RHEUMATOLOGICAL Hx Falls: Yes (at home in the bathroom) Hx Unsteady Gait: Yes Other/Comment: weak to walk - GASTROINTESTINAL Hx Gall Bladder Disease: No Other/Comment: gallbladder and colon surgery - PSYCHIATRIC Hx Depression: Yes (FROM DIAGNOSIS) Hx Substance Use: No - SURGICAL HISTORY Hx Cholecystectomy: Yes Other/Comment: colon surgery - ANESTHESIA Hx Anesthesia: Yes Hx Anesthesia Reactions: No Hx Malignant Hyperthermia: No Meds Allergies/Adverse Reactions: Allergies Allergy/AdvReac Type Severity Reaction Status Date / Time diphenhydramine Allergy Intermediate ITCHING Verified 01/15/18 10:38 [From Benadryl] Physical Exam - Constitutional Appears: Well - Head Exam Head Exam: ATRAUMATIC, NORMAL INSPECTION, NORMOCEPHALIC - Eye Exam Eye Exam: EOMI, Normal appearance, PERRL Pupil Exam: NORMAL ACCOMODATION, PERRL - ENT Exam ENT Exam: Mucous Membranes Moist, Normal Exam - Neck Exam Neck exam: Positive for: Normal Inspection - Respiratory Exam Respiratory Exam: Decreased Breath Sounds - Cardiovascular Exam Cardiovascular Exam: REGULAR RHYTHM, +S1, +S2 - GI/Abdominal Exam GI & Abdominal Exam: Diminished Bowel Sounds, Soft - Rectal Exam Rectal Exam: Deferred Results - Vital Signs Recent Vital Signs: Last Vital Signs Temp 98.7 F 05/27/18 16:28 Pulse 97 H 05/27/18 16:28 Resp 20 05/27/18 16:28 BP 114/68 05/27/18 16:28 Pulse Ox 96 05/27/18 16:28 - Labs Result Diagrams: 05/26/18 15:33 05/26/18 15:33
[2018-05-28 07:05] LABS: ALB/GLOB RATIO 0.8 (1.0-2.1); ALBUMIN 2.9 g/dL (3.5-5.0); ALT/SGPT 109 U/L (9-52); AST/SGOT 371 U/L (14-36); BILIRUBIN,DIRECT 17.8 mg/dL (0.0-0.4); BLOOD UREA NITROGEN 7 mg/dL (7-17); CALCIUM 9.2 mg/dl (8.6-10.4); GFR NON-AFRICAN AMERICAN > 60
--- NOTE | 2018-05-28 07:18 | CP.PCM.CON ---
History of Present Illness - History of Present Illness History of Present Illness: CONSULT DICTATED TOXIC SENSORY > MOTOR NEUROPATHY ??CHEMO / METABOLIC/?? INFLAMATORY PROCESS/PARANEOPLASTIC ??? SECONDARY - NO LONG TRACT SIGNS CONTINUE LYRICA MRI/LABS /EEG OOB /PT EMG AND NCV AN OP Past Patient History - Infectious Disease Hx of Infectious Diseases: None - Past Medical History & Family History Past Medical History?: Yes - Past Social History Smoking Status: Never Smoked - NEUROLOGICAL Other/Comment: tingling and numbness of hands and feet - RENAL Hx Chronic Kidney Disease: No - HEMATOLOGICAL/ONCOLOGICAL Hx Blood Disorders: Yes Hx Blood Transfusions: Yes Hx Blood Transfusion Reaction: No Hx Cancer: Yes (COLON) Other/Comment: FINISHED TREATMENT november 2017 - MUSCULOSKELETAL/RHEUMATOLOGICAL Hx Falls: Yes (at home in the bathroom) Hx Unsteady Gait: Yes Other/Comment: weak to walk - GASTROINTESTINAL Hx Gall Bladder Disease: No Other/Comment: gallbladder and colon surgery - PSYCHIATRIC Hx Depression: Yes (FROM DIAGNOSIS) Hx Substance Use: No - SURGICAL HISTORY Hx Cholecystectomy: Yes Other/Comment: colon surgery - ANESTHESIA Hx Anesthesia: Yes Hx Anesthesia Reactions: No Hx Malignant Hyperthermia: No Meds Allergies/Adverse Reactions: Allergies Allergy/AdvReac Type Severity Reaction Status Date / Time diphenhydramine Allergy Intermediate ITCHING Verified 01/15/18 10:38 [From Benadryl] - Medications Medications: Current Medications Enoxaparin Sodium (Lovenox) 40 mg SC Q24H [facility] Last Admin: 05/27/18 16:18 Dose: 40 mg Gabapentin (Neurontin) 100 mg PO BID [facility] Last Admin: 05/27/18 18:24 Dose: 100 mg Influenza Virus Vaccine (Fluzone Quad [id number]) 60 mcg IM .ONCE ONE Stop: 05/29/18 10:01 Metoclopramide HCl (Reglan) 10 mg PO BID PRN PRN Reason: nausea Pantoprazole Sodium (Protonix Ec Tab) 40 mg PO DAILY [facility] Last Admin: 05/27/18 16:18 Dose: 40 mg Pneumococcal Polyvalent Vaccine (Pneumovax 23 Vaccine) 0.5 ml IM .ONCE ONE Stop: 05/29/18 10:01 Results - Vital Signs Recent Vital Signs: Last Vital Signs Temp 98.2 F 05/28/18 00:00 Pulse 104 H 05/28/18 00:00 Resp 20 05/28/18 00:00 BP 133/83 05/28/18 00:00 Pulse Ox 97 05/28/18 00:00 - Labs Result Diagrams: 05/26/18 15:33 05/28/18 06:41 Labs: Laboratory Results - last 24 hr 05/28/18 06:41 Sodium 137 Potassium 4.1 Chloride 103 Carbon Dioxide 24 Anion Gap 14 BUN 7 Creatinine 0.5 L Est GFR ( Amer) > 60 Est GFR (Non-Af Amer) > 60 Random Glucose 88 Calcium 9.2 Phosphorus 1.9 L Magnesium 2.0 Total Bilirubin 20.0 H Direct Bilirubin 17.8 H AST 371 H ALT 109 H Alkaline Phosphatase 1130 H Total Protein 6.8 Albumin 2.9 L Globulin 3.9 Albumin/Globulin Ratio 0.8 L
--- NOTE | 2018-05-28 09:01 | CP.PCM.PN ---
<Connor Mtz - Last Filed: 05/28/18 10:34> Subjective - Date & Time of Evaluation Date of Evaluation: 05/28/18 Time of Evaluation: 08:15 - Subjective Subjective: PGY6 GI Fellow Progress Note Patient seen and examined bedside this morning. The patient states that she is feeling better today and actually denies any numbness/tingling in her hands/feet presently. States she is tolerating liquid diet and has not had any episodes of nausea/vomiting. No pain presently. 12 system ROS performed and negative except where stated. Objective - Vital Signs/Intake and Output Vital Signs (last 24 hours): Temp Pulse Resp BP Pulse Ox 98.2 F 104 H 20 133/83 97 05/28/18 00:00 05/28/18 00:00 05/28/18 00:00 05/28/18 00:00 05/28/18 00:00 - Medications Medications: Current Medications Enoxaparin Sodium (Lovenox) 40 mg SC Q24H [facility] Last Admin: 05/27/18 16:18 Dose: 40 mg Gabapentin (Neurontin) 200 mg PO BID [facility] Influenza Virus Vaccine (Fluzone Quad [id number]) 60 mcg IM .ONCE ONE Stop: 05/29/18 10:01 Metoclopramide HCl (Reglan) 10 mg PO BID PRN PRN Reason: nausea Pantoprazole Sodium (Protonix Ec Tab) 40 mg PO DAILY [facility] Last Admin: 05/27/18 16:18 Dose: 40 mg Pneumococcal Polyvalent Vaccine (Pneumovax 23 Vaccine) 0.5 ml IM .ONCE ONE Stop: 05/29/18 10:01 - Labs Labs: 05/26/18 15:33 05/28/18 06:41 PT 15.4 SECONDS (9.7-12.2) H 05/26/18 16:32 INR 1.4 05/26/18 16:32 APTT 30 SECONDS (21-34) 05/26/18 16:32 - Constitutional Appears: No Acute Distress, Chronically Ill - Eye Exam Eye Exam: EOMI, PERRL, Scleral icterus - ENT Exam ENT Exam: Mucous Membranes Moist - Respiratory Exam Respiratory Exam: Clear to Ausculation Bilateral. absent: Rales, Rhonchi, Wheezes - Cardiovascular Exam Cardiovascular Exam: RRR, +S1, +S2 - GI/Abdominal Exam GI & Abdominal Exam: Distended, Soft, Mass (RLQ), Normal Bowel Sounds. 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 -Multiple liver masses -RLQ pelvic mass -Nausea/vomiting, improved -H/O stage 3 colon cancer with lymph node metastases s/p right hemicolectomy and chemotherapy -Direct hyperbilirubinemia 2/2 above -Abnormal LFTs 2/2 above Plan: -Tolerating liquid diet without issue and would continue with this for now -Suggest addition of Ensure TID-QID -Given current imaging, suspicion is for advanced recurrent malignant disease -Awaiting oncology evaluation and plan -Continue supportive care for now -Consider palliative/hospice care -Supportive care with antiemetics, IVF as indicated -Will sign off. If patient experiences recurrent symptoms, please reconsult. <Mita Clark - Last Filed: 05/28/18 12:23> Objective - Vital Signs/Intake and Output Vital Signs (last 24 hours): Temp Pulse Resp BP Pulse Ox 98.7 F 88 20 112/73 96 05/28/18 07:00 05/28/18 07:00 05/28/18 07:00 05/28/18 07:00 05/28/18 07:00 - Medications Medications: Current Medications Enoxaparin Sodium (Lovenox) 40 mg SC Q24H [facility] Last Admin: 05/27/18 16:18 Dose: 40 mg Gabapentin (Neurontin) 200 mg PO BID [facility] Last Admin: 05/28/18 10:13 Dose: 200 mg Influenza Virus Vaccine (Fluzone Quad [id number]) 60 mcg IM .ONCE ONE Stop: 05/29/18 10:01 Metoclopramide HCl (Reglan) 10 mg PO BID PRN PRN Reason: nausea Pantoprazole Sodium (Protonix Ec Tab) 40 mg PO DAILY [facility] Last Admin: 05/28/18 10:13 Dose: 40 mg Pneumococcal Polyvalent Vaccine (Pneumovax 23 Vaccine) 0.5 ml IM .ONCE ONE Stop: 05/29/18 10:01 - Labs Labs: 05/26/18 15:33 05/28/18 06:41 PT 15.4 SECONDS (9.7-12.2) H 05/26/18 16:32 INR 1.4 05/26/18 16:32 APTT 30 SECONDS (21-34) 05/26/18 16:32 Attending/Attestation - Attestation I have personally seen and examined this patient.: Yes I have fully participated in the care of the patient.: Yes I have reviewed all pertinent clinical information, including history, physical exam and plan: Yes Notes (Text): 05/28/18 12:17 I have seen and examined patient with GI fellow this am at bedside. In a nutshell, this is a 77 year old female with history of invasive colon cancer s/p R hemicolectomy in April 2017 followed by 6 months of chemotherapy from May - October 2017, who presents to hospital with complaint of progressive upper and lower extremity numbness/tingling along with jaundice and loss of appetite for the past [address] imaging reviewed by me showing multiple hepatic lesions consistent with metastatic disease, pulmonary nodules, no biliary dilation (normal caliber CBD), large complex cystic pelvic lesion with likely peritoneal carcinamotosis. She is able to tolerated clear liquid diet and will advance today. She may need palliative stent for biliary obstruction and if unable to tolerate oral, may have to get evaluated for pyloric obstruction from duodenal compression and hence placement of J tube by surgery. Continue supportive care. Primary team to discuss palliative means and hospice care for end stage metastatic disease and goals of care. Will sign off now. Please reconsult after having family discussions for goals of care.
[2018-05-28] MEDS: Pantoprazole 40 mg EC Tab PO SCH (10:13)
--- NOTE | 2018-05-28 11:34 | CON ---
DATE: 05/28/2018 ATTENDING PHYSICIAN: Elisa Castillo MD LOCATION: The patient is in room 365, bed A. REASON FOR THE CONSULTATION: Numbness of the hands and feet. HISTORY OF PRESENTING ILLNESS: Ms. Shae Escalona is a 77-year-old thinly built, right-handed female, brought into [facility] with a history of inability to hold her food following chemotherapy. She also admitted tingling and numbness sensation of her arms and legs for the last two months. From neurological point of view, I was called in to evaluate her. She denies headache. She denies neck pain. She denies lower back pain. She denies any fall. The symptoms is not progressive in nature. PAST MEDICAL HISTORY: Significant to metastatic colon cancer ( carcinoma), status post chemotherapy. PAST SURGICAL HISTORY: Right hemicolectomy, cholecystectomy, Port-A-Cath placement. FAMILY HISTORY: Mother had a stomach cancer. Sister had a breast cancer. Grandmother had a thyroid cancer. PERSONAL HISTORY: Denies smoking or alcohol use. ALLERGIES: ALLERGIC TO BENADRYL. REVIEW OF SYSTEM: A 12-point system being reviewed. From neuro, new onset of sensory deficit. MEDICATIONS: Lovenox, Neurontin, pantoprazole and Reglan. PHYSICAL EXAMINATION: VITAL SIGNS: Blood pressure 133/83, mean arterial pressure of 99, respiratory rate 18, pulse rate 104, and temperature 98.2. NECK: Supple. No carotid bruits. HEART: Sounds regular. CHEST: Fair air entry. EXTREMITIES: No edema in legs. NEUROLOGICAL: Mental status: The patient is examined in Mongolian only. She follows one to two-step command. No evidence of confusion. No sign of depression or suicidal ideation. Speech is clear in Mongolian. Cranial nerve: Visual field intact. Pupils reactive to light. Extraocular movement normal. No nystagmus. No facial sensory deficit. No facial asymmetry. Hearing is normal. Tongue is midline. Good gag. Motor: On outstretched hand with eyes closed, no drift noted. Power is symmetric on either side. Deep tendon reflexes grossly absent. Plantars are downgoing. Sensory: No cortical sensory loss. Significant bilateral distal symmetric sensorimotor neuropathy. Coordination: Finger-nose test is intact. No asterixis. Gait: Stable broad-based gait without any assistance. CONCLUSION: As per neurological examination, Ms. 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 This is probably related to her underlying history of chemotherapy, could be the cause as a toxic manifestation of neuropathy; however, other possible causes including metabolic, inflammatory or infectious process should be ruled out. The current examination though the patient has metastatic colon cancer, do not find any long tract sign suggestive of central nervous system involvement. Though the patient is asymptomatic, I started to recommend her to have MRI of the brain also to rule out any metastatic process. RECOMMENDATIONS: 1. MRI of the brain to rule out any metastatic process. 2. Hydration, correct the electrolytes and correct her liver functions. 3. Neurontin dose can be increased as she tolerates. 4. Electrodiagnostic studies including nerve conduction study and electromyography that can be done as outpatient. 5. Out of bed and physical therapy should be instituted as early as possible. The patient will be followed while she is in the hospital. Dutch Conner MD
--- NOTE | 2018-05-28 11:48 | CP.PCM.CON ---
History of Present Illness - History of Present Illness History of Present Illness: 77 year old female with a history of stage III colon cancer diagnosed in 04/2017 s/p hemicolectomy (pT3 N2b) s/p adjuvant chemotherapy completed in 10/2017, presenting with progressive weakness, found to have obstructive jaundice from li ector recurrent malignancy. The patient notes to neuropathy involving her hands and feet since completing chemotherapy. She takes Lyrica which helps. In the past few weeks she notes to progressive fatigue and diminished appetite. Imaging in concerning for liver, and lung metastasis, as well as a pelvic mass. Past medical history: stage III colon cancer diagnosed in 04/2017 s/p hemicolectomy (pT3 N2b) s/p adjuvant chemotherapy completed in 10/2017, neuropathy Past surgical history: Hemicolectomy, portacath placement Family history: Denies hematologic and oncologic problems Social history: Denies tobacco, alcohol, and illicit drug use. Allergies: Dephenhydramine Review of systems: All remaining review of systems including HEENT, cardiovascular, respiratory, gastrointestinal, genitourinary, muscululoskeletal, dermatologic, neurologic, and psychiatric are negative unless mentioned in the HPI. Past Patient History - Infectious Disease Hx of Infectious Diseases: None - Past Medical History & Family History Past Medical History?: Yes - Past Social History Smoking Status: Never Smoked - NEUROLOGICAL Other/Comment: tingling and numbness of hands and feet - RENAL Hx Chronic Kidney Disease: No - HEMATOLOGICAL/ONCOLOGICAL Hx Blood Disorders: Yes Hx Blood Transfusions: Yes Hx Blood Transfusion Reaction: No Hx Cancer: Yes (COLON) Other/Comment: FINISHED TREATMENT november 2017 - MUSCULOSKELETAL/RHEUMATOLOGICAL Hx Falls: Yes (at home in the bathroom) Hx Unsteady Gait: Yes Other/Comment: weak to walk - GASTROINTESTINAL Hx Gall Bladder Disease: No Other/Comment: gallbladder and colon surgery - PSYCHIATRIC Hx Depression: Yes (FROM DIAGNOSIS) Hx Substance Use: No - SURGICAL HISTORY Hx Cholecystectomy: Yes Other/Comment: colon surgery - ANESTHESIA Hx Anesthesia: Yes Hx Anesthesia Reactions: No Hx Malignant Hyperthermia: No Meds Allergies/Adverse Reactions: Allergies Allergy/AdvReac Type Severity Reaction Status Date / Time diphenhydramine Allergy Intermediate ITCHING Verified 01/15/18 10:38 [From Benadryl] - Medications Medications: Current Medications Enoxaparin Sodium (Lovenox) 40 mg SC Q24H [facility] Last Admin: 05/27/18 16:18 Dose: 40 mg Gabapentin (Neurontin) 200 mg PO BID [facility] Last Admin: 05/28/18 10:13 Dose: 200 mg Influenza Virus Vaccine (Fluzone Quad [id number]) 60 mcg IM .ONCE ONE Stop: 05/29/18 10:01 Metoclopramide HCl (Reglan) 10 mg PO BID PRN PRN Reason: nausea Pantoprazole Sodium (Protonix Ec Tab) 40 mg PO DAILY [facility] Last Admin: 05/28/18 10:13 Dose: 40 mg Pneumococcal Polyvalent Vaccine (Pneumovax 23 Vaccine) 0.5 ml IM .ONCE ONE Stop: 05/29/18 10:01 Physical Exam - Head Exam Head Exam: ATRAUMATIC - Eye Exam Eye Exam: Normal appearance, Scleral icterus - Respiratory Exam Respiratory Exam: NORMAL BREATHING PATTERN - Cardiovascular Exam Cardiovascular Exam: +S1, +S2 - GI/Abdominal Exam GI & Abdominal Exam: Normal Bowel Sounds - Neurological Exam Neurological exam: Oriented x3 - Psychiatric Exam Psychiatric exam: Normal Affect, Normal Mood - Skin Skin Exam: Warm Results - Vital Signs Recent Vital Signs: Last Vital Signs Temp 98.7 F 05/28/18 07:00 Pulse 88 05/28/18 07:00 Resp 20 05/28/18 07:00 BP 112/73 05/28/18 07:00 Pulse Ox 96 05/28/18 07:00 - Labs Result Diagrams: 05/26/18 15:33 05/28/18 06:41 Labs: Laboratory Results - last 24 hr 05/28/18 06:41 Sodium 137 Potassium 4.1 Chloride 103 Carbon Dioxide 24 Anion Gap 14 BUN 7 Creatinine 0.5 L Est GFR ( Amer) > 60 Est GFR (Non-Af Amer) > 60 Random Glucose 88 Calcium 9.2 Phosphorus 1.9 L Magnesium 2.0 Total Bilirubin 20.0 H Direct Bilirubin 17.8 H AST 371 H ALT 109 H Alkaline Phosphatase 1130 H Total Protein 6.8 Albumin 2.9 L Globulin 3.9 Albumin/Globulin Ratio 0.8 L Carcinoembryonic Ag 179.0 H Vitamin B12 > 1000 H Assessment & Plan (1) Obstructive jaundice Assessment and Plan: likely recurrent colon cancer; elevated CEA GI f/u ? percutaneous drain ? biliary stent current bilirubin would prohibit chemotherapy if biliary drain/stent not possible, will discuss palliative care and hospice Status: Acute (2) Elevated CEA Assessment and Plan: likely recurrent colon cancer Status: Acute (3) Colon cancer Assessment and Plan: diagnosed with stage III s/p surgery and adjuvant chemotherapy current evidence of lung and liver metastasis Thank you for this interesting consult. Status: Acute
--- NOTE | 2018-05-28 12:02 | MRI ---
Date of service: 05/28/2018 PROCEDURE: MRI BRAIN WITHOUT CONTRAST HISTORY: mets COMPARISON: None available. TECHNIQUE: Multiplanar, multisequence MR images of the brain were obtained without intravenous contrast enhancement. FINDINGS: HEMORRHAGE: None DWI: No evidence of an acute or early subacute infarction. BRAIN PARENCHYMA: There are mild chronic microangiopathic changes. There is no mass effect or abnormal extra-axial fluid collection. There are lobular round 6 x 8 and 15 x 8 mm T1 hypo intense, FLAIR hypointense and T2 hyperintense lesions in the left medial temporal lobe. The midline sagittal structures are normal. VENTRICLES: There is mild age-related global parenchymal volume loss and proportionate enlargement of the ventricles and cortical sulci. CRANIUM: There is normal bone marrow signal pattern. ORBITS: Grossly unremarkable. PARANASAL SINUSES/MASTOIDS: Chronic right posterior ethmoid sinusitis. The remaining included paranasal sinuses and mastoid air cells are clear. VASCULAR SYSTEM: Predominantly clear. OTHER FINDINGS: None. IMPRESSION: 1. 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 Dedicated MRI of the brain with intravenous contrast may be helpful for further characterization. 2. Mild chronic microangiopathic changes and mild age-related global parenchymal volume loss.
--- NOTE | 2018-05-28 12:30 | CP.PCM.PN ---
Subjective - Date & Time of Evaluation Date of Evaluation: 05/28/18 Time of Evaluation: 08:15 - Subjective Subjective: clinically same Objective - Vital Signs/Intake and Output Vital Signs (last 24 hours): Temp Pulse Resp BP Pulse Ox 98.7 F 88 20 112/73 96 05/28/18 07:00 05/28/18 07:00 05/28/18 07:00 05/28/18 07:00 05/28/18 07:00 - Medications Medications: Current Medications Enoxaparin Sodium (Lovenox) 40 mg SC Q24H [facility] Last Admin: 05/27/18 16:18 Dose: 40 mg Gabapentin (Neurontin) 200 mg PO BID [facility] Last Admin: 05/28/18 10:13 Dose: 200 mg Influenza Virus Vaccine (Fluzone Quad [id number]) 60 mcg IM .ONCE ONE Stop: 05/29/18 10:01 Metoclopramide HCl (Reglan) 10 mg PO BID PRN PRN Reason: nausea Pantoprazole Sodium (Protonix Ec Tab) 40 mg PO DAILY [facility] Last Admin: 05/28/18 10:13 Dose: 40 mg Pneumococcal Polyvalent Vaccine (Pneumovax 23 Vaccine) 0.5 ml IM .ONCE ONE Stop: 05/29/18 10:01 - Labs Labs: 05/26/18 15:33 05/28/18 06:41 PT 15.4 SECONDS (9.7-12.2) H 05/26/18 16:32 INR 1.4 05/26/18 16:32 APTT 30 SECONDS (21-34) 05/26/18 16:32
[2018-05-28 12:47] LABS: FREE T4 1.58 ng/dL (0.78-2.19)
--- NOTE | 2018-05-28 14:53 | CARD ---
APPROVED REPORT Date of service: 05/26/2018 EKG Measurement Heart [id number] MD [id number] <Conclusion> Sinus rhythm with premature atrial complexes Otherwise normal ECG
[2018-05-28] MEDS: Enoxaparin 40 mg Syringe SC SCH (16:50)
[2018-05-29] MEDS: Pantoprazole 40 mg EC Tab PO SCH (09:58)
[2018-05-29] MEDS ORDERED: Influenza Vaccine 60 MCG/0.5 ML SYR (3 yr & up) IM ONE (10:00)
[2018-05-29] MEDS ORDERED: Pneumococcal 23-Valent Vaccine IM ONE (10:00)
--- NOTE | 2018-05-29 12:42 | CP.PCM.PN ---
Subjective - Date & Time of Evaluation Date of Evaluation: 05/29/18 Time of Evaluation: 08:15 - Subjective Subjective: clinically same Objective - Vital Signs/Intake and Output Vital Signs (last 24 hours): Temp Pulse Resp BP Pulse Ox 97.7 F 96 H 20 119/72 96 05/29/18 07:48 05/29/18 07:48 05/29/18 07:48 05/29/18 07:48 05/29/18 07:48 Intake and Output: 05/29/18 05/29/18 06:59 18:59 Intake Total 350 150 Balance 350 150 - Medications Medications: Current Medications Enoxaparin Sodium (Lovenox) 40 mg SC Q24H [facility] Last Admin: 05/28/18 16:50 Dose: 40 mg Gabapentin (Neurontin) 200 mg PO BID [facility] Last Admin: 05/29/18 09:56 Dose: 200 mg Metoclopramide HCl (Reglan) 10 mg PO BID PRN PRN Reason: nausea Pantoprazole Sodium (Protonix Ec Tab) 40 mg PO DAILY [facility] Last Admin: 05/29/18 09:58 Dose: 40 mg - Labs Labs: 05/26/18 15:33 05/28/18 06:41 PT 15.4 SECONDS (9.7-12.2) H 05/26/18 16:32 INR 1.4 05/26/18 16:32 APTT 30 SECONDS (21-34) 05/26/18 16:32
[2018-05-29] MEDS: Enoxaparin 40 mg Syringe SC SCH (16:08)
--- NOTE | 2018-05-29 22:42 | CP.PCM.PN ---
Subjective - Date & Time of Evaluation Date of Evaluation: 05/29/18 Time of Evaluation: 19:00 - Subjective Subjective: Feels better Had at length discussion with the patients son and sister; requesting DNR/DNI Objective - Vital Signs/Intake and Output Vital Signs (last 24 hours): Temp Pulse Resp BP Pulse Ox 98.0 F 104 H 20 134/81 95 05/29/18 15:00 05/29/18 15:00 05/29/18 15:00 05/29/18 15:00 05/29/18 15:00 Intake and Output: 05/29/18 05/30/18 18:59 06:59 Intake Total 510 320 Balance 510 320 - Medications Medications: Current Medications Enoxaparin Sodium (Lovenox) 40 mg SC Q24H [facility] Last Admin: 05/29/18 16:08 Dose: 40 mg Gabapentin (Neurontin) 200 mg PO BID [facility] Last Admin: 05/29/18 17:25 Dose: 200 mg Metoclopramide HCl (Reglan) 10 mg PO BID PRN PRN Reason: nausea Pantoprazole Sodium (Protonix Ec Tab) 40 mg PO DAILY [facility] Last Admin: 05/29/18 09:58 Dose: 40 mg - Labs Labs: 05/26/18 15:33 05/28/18 06:41 PT 15.4 SECONDS (9.7-12.2) H 05/26/18 16:32 INR 1.4 05/26/18 16:32 APTT 30 SECONDS (21-34) 05/26/18 16:32 - Head Exam Head Exam: ATRAUMATIC - Eye Exam Eye Exam: Normal appearance, Scleral icterus - ENT Exam ENT Exam: Mucous Membranes Dry - Respiratory Exam Respiratory Exam: NORMAL BREATHING PATTERN - Cardiovascular Exam Cardiovascular Exam: +S1, +S2 - GI/Abdominal Exam GI & Abdominal Exam: Normal Bowel Sounds Assessment and Plan (1) Obstructive jaundice Assessment & Plan: secondary to likely metastatic colon cancer patients family do not wish aggressive w/u and intervention Status: Acute (2) Elevated CEA Assessment & Plan: likely recurrent metastatic colon cancer Status: Acute (3) Colon cancer Assessment & Plan: likely stage IV family requesting DNR/DNI no aggressive intervention palliative care evaluation Status: Acute
[2018-05-30] MEDS: Pantoprazole 40 mg EC Tab PO SCH (09:40)
--- NOTE | 2018-05-30 16:01 | CP.PCM.PN ---
Subjective - Date & Time of Evaluation Date of Evaluation: 05/30/18 Time of Evaluation: 08:15 - Subjective Subjective: clinically same Objective - Vital Signs/Intake and Output Vital Signs (last 24 hours): Temp Pulse Resp BP Pulse Ox 97.6 F 98 H 20 128/84 95 05/30/18 08:00 05/30/18 08:00 05/30/18 08:00 05/30/18 08:00 05/30/18 08:00 Intake and Output: 05/30/18 05/30/18 06:59 18:59 Intake Total 440 Balance 440 - Medications Medications: Current Medications Enoxaparin Sodium (Lovenox) 40 mg SC Q24H [facility] Last Admin: 05/29/18 16:08 Dose: 40 mg Gabapentin (Neurontin) 200 mg PO BID [facility] Last Admin: 05/30/18 09:40 Dose: 200 mg Metoclopramide HCl (Reglan) 10 mg PO BID PRN PRN Reason: nausea Pantoprazole Sodium (Protonix Ec Tab) 40 mg PO DAILY [facility] Last Admin: 05/30/18 09:40 Dose: 40 mg - Labs Labs: 05/26/18 15:33 05/28/18 06:41 PT 15.4 SECONDS (9.7-12.2) H 05/26/18 16:32 INR 1.4 05/26/18 16:32 APTT 30 SECONDS (21-34) 05/26/18 16:32
[2018-05-30] MEDS: Enoxaparin 40 mg Syringe SC SCH (18:16)
[2018-05-30 23:44] VITALS: RESP 20
[2018-05-31 08:40] VITALS: BP 116/72; PULSE 96; TEMP 98.3; O2SAT 99
[2018-05-31] MEDS: Pantoprazole 40 mg EC Tab PO SCH (09:30)
--- NOTE | 2018-05-31 15:23 | CP.PCM.PN ---
Subjective - Date & Time of Evaluation Date of Evaluation: 05/31/18 Time of Evaluation: 15:23 - Subjective Subjective: alert, responsive, remains weak. Objective - Vital Signs/Intake and Output Vital Signs (last 24 hours): Temp Pulse Resp BP Pulse Ox 98.3 F 96 H 20 116/72 99 05/31/18 08:00 05/31/18 08:00 05/31/18 08:00 05/31/18 08:00 05/31/18 08:00 Intake and Output: 05/31/18 05/31/18 06:59 18:59 Intake Total 330 360 Balance 330 360 - Medications Medications: Current Medications Gabapentin (Neurontin) 200 mg PO BID [facility] Last Admin: 05/31/18 09:30 Dose: 200 mg Metoclopramide HCl (Reglan) 10 mg PO BID PRN PRN Reason: nausea Pantoprazole Sodium (Protonix Ec Tab) 40 mg PO DAILY [facility] Last Admin: 05/31/18 09:30 Dose: 40 mg - Labs Labs: 05/26/18 15:33 05/28/18 06:41 PT 15.4 SECONDS (9.7-12.2) H 05/26/18 16:32 INR 1.4 05/26/18 16:32 APTT 30 SECONDS (21-34) 05/26/18 16:32 Assessment and Plan - Assessment and Plan (Free Text) Assessment: Patient with stage 4 colon cancer, seen and examined. Alert, responsive, weak, has pain when moving around. Patient requires a hospital bed for frequent re positioning due to weakness from advanced colon cancer. Discussed with DR Shakira Castillo, plan to discharge home today. Advised to follow up with PMD in 1 week.
[2018-05-31] MEDS ORDERED: Influenza Vaccine 60 MCG/0.5 ML SYR (3 yr & up) IM ONE (16:30)
--- NOTE | 2018-05-31 22:32 | CP.PCM.PN ---
Subjective - Date & Time of Evaluation Date of Evaluation: 05/31/18 Time of Evaluation: 08:00 - Subjective Subjective: Feeling better Objective - Vital Signs/Intake and Output Vital Signs (last 24 hours): Temp Pulse Resp BP Pulse Ox 98.3 F 96 H 20 116/72 99 05/31/18 08:00 05/31/18 08:00 05/31/18 08:00 05/31/18 08:00 05/31/18 08:00 Intake and Output: 05/31/18 06/01/18 18:59 06:59 Intake Total 360 Balance 360 - Labs Labs: 05/26/18 15:33 05/28/18 06:41 PT 15.4 SECONDS (9.7-12.2) H 05/26/18 16:32 INR 1.4 05/26/18 16:32 APTT 30 SECONDS (21-34) 05/26/18 16:32 - Head Exam Head Exam: ATRAUMATIC - Eye Exam Eye Exam: Scleral icterus - ENT Exam ENT Exam: Mucous Membranes Dry - Respiratory Exam Respiratory Exam: NORMAL BREATHING PATTERN - Cardiovascular Exam Cardiovascular Exam: +S1, +S2 - GI/Abdominal Exam GI & Abdominal Exam: Normal Bowel Sounds - Extremities Exam Extremities Exam: Normal Inspection Assessment and Plan (1) Obstructive jaundice Assessment & Plan: secondary to likely metastatic colon cancer patients family do not wish aggressive w/u and intervention Status: Acute (2) Elevated CEA Assessment & Plan: likely recurrent metastatic colon cancer Status: Acute (3) Colon cancer Assessment & Plan: likely stage IV family requesting DNR/DNI no aggressive intervention palliative care evaluation Status: Acute
== END 2018-05-31 16:28 | disposition home or self-care (01) | DRG 435 ==
LOC: C.ER 13:05 → C.3T 18:56
PROVIDERS: ADMIT Internal Medicine Nephrology; ATTEND Internal Medicine Nephrology
DX: C78.7 Secondary malignant neoplasm of liver and intrahepatic bile duct (principal); K83.1 Obstruction of bile duct; C18.2 Malignant neoplasm of ascending colon; C77.2 Secondary and unspecified malignant neoplasm of intra-abdominal lymph nodes; C78.00 Secondary malignant neoplasm of unspecified lung; Z66 Do not resuscitate; G62.9 Polyneuropathy, unspecified; Z51.5 Encounter for palliative care; Z80.0 Family history of malignant neoplasm of digestive organs; Z80.3 Family history of malignant neoplasm of breast; Z92.21 Personal history of antineoplastic chemotherapy